=== PATIENT | female | born 1965 | race Caucasian/White ===

== ENCOUNTER → 2019-10-26 14:40 | Outpatient (BNVA) | payer MEDICAID, SELFPAY | PROVIDERS: Family Provider Nurse Practitioner Family; PCP Nurse Practitioner; Visit Provider Podiatrist Foot & Ankle Surgery | DX: M79.671 Pain in right foot (principal); M77.8 Other enthesopathies, not elsewhere classified | CPT/HCPCS: 73630 ==

== ENCOUNTER → 2020-05-22 14:37 | Outpatient (BNVA) | payer MEDICAID, SELFPAY | PROVIDERS: Family Provider Nurse Practitioner Family; PCP Nurse Practitioner; Visit Provider Podiatrist Foot & Ankle Surgery | DX: M25.571 Pain in right ankle and joints of right foot (principal); Q82.8 Other specified congenital malformations of skin | CPT/HCPCS: 73610 ==

== ENCOUNTER → 2020-11-17 13:23 | Outpatient (BNVA) | payer MEDICAID, SELFPAY | PROVIDERS: Family Provider Nurse Practitioner Family; PCP Nurse Practitioner; Visit Provider Nurse Practitioner Family | DX: N39.0 Urinary tract infection, site not specified (principal); E66.01 Morbid (severe) obesity due to excess calories; Z68.41 Body mass index [BMI] 40.0-44.9, adult; R11.2 Nausea with vomiting, unspecified | CPT/HCPCS: 36416; 81000; 82962 ==

== ENCOUNTER 2020-11-24 22:26 | Emergency (ER) | payer MEDICAID, SELFPAY ==
[2020-11-24 22:37] VITALS: BP 129/85; PULSE 86; RESP 20; TEMP 36.7; O2SAT 93; BMI 40.7
--- NOTE | 2020-11-24 22:52 | W.ED.NAVMDI ---
HPI - Nausea/Vomiting/Diarrhea General: Chief complaint: Nausea/Vomiting/Diarrhea Stated complaint: N/V, DARK BLOODY URINE Time Seen by Provider: 11/24/20 22:44 Source: patient Mode of arrival: ambulatory Limitations: no limitations History of Present Illness: HPI Narrative: 55-year-old female who states she has had nausea and vomiting over the last 2 to 3 weeks. States she has vomiting anytime she eats. She states she had some slight abdominal cramping but denies any pain currently. Patient is quite jaundiced here with scleral icterus. She states that is not normal for her. She denies any history of cancer. She has had a cholecystectomy. Associated nausea: Yes Associated symtoms: Reports nausea; Denies chest pain, dysuria or headache(s) Review of Systems Const: Denies: fever(s), chills, body aches or change in appetite Eyes: Denies: blurry vision or eye discomfort ENMT: Denies: throat pain or dental pain Card: Denies: chest pain Resp: Denies: dyspnea GI: Reports: nausea and vomiting : Denies: dysuria Musc: Denies: neck pain or back pain Skin/Breast: Denies: rash Neuro: Denies: headache(s) Psych: Denies: depression Fredo/Lymph: Denies: easy bruising All/Imm: Denies: urticaria PFSH ED PFSH: Medical History Anxiety and depression Chronic back pain COPD (chronic obstructive pulmonary disease) Diabetes mellitus with peripheral autonomic neuropathy Essential (primary) hypertension GERD (gastroesophageal reflux disease) Left anterior shoulder pain Mixed hyperlipidemia Morbid obesity with BMI of 40.0-44.9, adult Vaginal candidiasis Surgical History History of arthroscopy of both knees History of bilateral carpal tunnel release History of laparoscopic cholecystectomy History of tonsillectomy and adenoidectomy Family History Other Cancer Diabetes Denies family history of Anesthesia complication Bleeding disorder Social History Smoking and tobacco status: current every day smoker cigarettes Packs smoked per day: 1 Quit status (tobacco): considering quitting Second hand smoke exposure: Yes Alcohol intake: never Household members: children Marital status: Number of children: 2 Current occupational status: disabled Physical Exam Const: COMMON NORMALS: no acute distress, patient oriented x3 and healthy appearing HENMT: COMMON NORMALS: normocephalic and atraumatic HEAD & SCALP: normocephalic and atraumatic Eye: COMMON NORMALS: Equal, round and reactive pupils present and EOMs intact bilaterally PUPIL: Yes Equal, round and reactive pupils present OTHER: Scleral icterus Neck/C-Spine: COMMON NORMALS: full ROM and supple Chest: COMMONS NORMALS: normal inspection of the chest and normal palpation of entire chest wall Resp: COMMON NORMALS: normal respiratory effort, No retractions, No use of accessory muscles and clear to auscultation bilaterally AUSCULTATION: clear to auscultation bilaterally Cardio: COMMON NORMALS: regular rate, regular rhythm and No murmurs present (Cardio) RATE: regular rate RHYTHM: regular rhythm GI: COMMON NORMALS: Normal to inspection, nondistended, normoactive bowel sounds present, Soft to palpation, non-tender and no masses PALPATION: Yes Soft to palpation Extremity: COMMON NORMALS: normal to inspection and full ROM Neuro: COMMON NORMALS: patient oriented x3, moves all extremities and no focal motor deficits Psych: COMMON NORMALS: mental status grossly normal, Normal thought process present and cooperative THOUGHT PROCESS: Normal thought process present Skin: COMMON NORMALS: no rashes or lesions noted and no wounds NARRATIVE SKIN EXAM: Skin is jaundiced GENERAL SKIN EXAM: no rashes or lesions noted Course Vital Signs: Vital signs: Vital Signs Temperature 98.0 F 11/24/20 22:37 Pulse Rate 80 11/25/20 01:57 Respiratory Rate 17 11/25/20 01:57 Blood Pressure 124/87 11/25/20 01:57 Pulse Oximetry 90 11/25/20 01:57 MDM - Nausea/Vomiting/Diarrhea MDM Narrative: Medical decision making narrative: Patient presents here with hepatitis A causing her elevated bilirubin. CT scan here is negative. She had no vomiting here and feels much improved after IV fluids. Feel she is stable for discharge and she is to follow closely with Dr. Lei. If she has any worsening or any vomiting she is to return immediately she understands and agrees to plan. Lab Data: Labs: Lab Results 11/24/20 11/24/20 11/24/20 Range/Units 23:03 23:12 23:12 WBC 4.4 (4.0-10.0) 10^3/ uL RBC 4.58 (4.1-5.3) 10^6/u L Hgb 15.5 H (11.5-15.3) g/dL Hct 44.9 (37.0-47.0) % MCV 98.0 (81-99) fL MCH 33.8 (28.0-34.0) pg MCHC 34.5 (30.0-36.0) g/dL RDW 16.3 H (12.1-15.1) % Plt Count 193 (130-400) 10^3/c mm MPV 12.2 H (7.4-10.4) fL Neut % (Auto) 64.5 % Lymph % (Auto) 21.6 % Estill % (Auto) 11.5 % Eos % (Auto) 0.5 % Baso % (Auto) 0.5 % Neut # (Auto) 2.81 (1.8-7.7) 10^3/u L Lymph # (Auto) 0.9 (0.8-4.8) 10^3/u L Estill # (Auto) 0.5 (0.2-0.9) 10^3/u L Eos # (Auto) 0.0 (0.0-0.8) 10^3/u L Baso # (Auto) 0.0 (0.0-0.1) 10^3/u L Nucleated RBC % (a uto) 0 % Nucleated RBCs # 0.0 /100WBC PT (12.1-14.9) SECO NDS INR (0.8-1.2) Sodium 132 L (136-145) mmol/L Potassium 4.2 (3.5-5.1) mmol/L Chloride 98 (98-107) mmol/L Carbon Dioxide 24 (22-29) mmol/L Anion Gap 14.2 (5-19) BUN 9 (6-20) mg/dL Creatinine 0.4 L (0.5-0.9) mg/dL GFR Calculation 164.5 H (90-130) mL/min Glucose 193 H (65-115) mg/dL Calculated Osmolal ity 278 L (285-295) mOsm/k g Calcium 8.2 L (8.5-10.5) mg/dL Total Bilirubin 15.9 H* (0.15-1.2) mg/dL AST 663 H (0-32) U/L ALT 627 H (0-33) U/L Alkaline Phosphata se 155 H (35-105) IU/L Total Protein 7.4 (6.6-8.7) g/dL Albumin 2.4 L (3.5-5.2) g/dL Globulin 5.0 H (1.3-4.6) g/dL Lipase 90 H (13-60) U/L Urine Color Marian (Yellow) Urine Appearance Sl cloudy A (CLEAR) Urine pH 5 (5-7) Ur Specific Gravit y 1.020 (1.005-1.030) Urine Protein Trace (Negative) Urine Glucose (UA) Norm (Normal) Urine Ketones Negative (Negative) Urine Blood 2+ H (Negative) Urine Nitrate Negative (Negative) Urine Bilirubin 3+ H (Negative) Urine Urobilinogen 8 H (Negative) mg/dL Ur Leukocyte Leena ase 1+ H (Negative) Urine RBC 10-15 H (0-2) /hpf Urine WBC 5-10 H (0-5) /hpf Ur Squamous Epith Cells 25-40 H (0-5) /hpf Amorphous Sediment 1+ /hpf Urine Bacteria 2+ H (NONE) /hpf Urine Mucus 1+ /hpf Hepatitis A IgM Ab (Nonreactive) Hep Bs Antigen (Nonreactive) Hep Bs Antibody (0-8.5) Hep B Core Total A b (Nonreactive) Hepatitis C Antibo dy (Nonreactive) 11/25/20 11/25/20 Range/Units 00:30 02:04 WBC (4.0-10.0) 10^3/ uL RBC (4.1-5.3) 10^6/u L Hgb (11.5-15.3) g/dL Hct (37.0-47.0) % MCV (81-99) fL MCH (28.0-34.0) pg MCHC (30.0-36.0) g/dL RDW (12.1-15.1) % Plt Count (130-400) 10^3/c mm MPV (7.4-10.4) fL Neut % (Auto) % Lymph % (Auto) % Estill % (Auto) % Eos % (Auto) % Baso % (Auto) % Neut # (Auto) (1.8-7.7) 10^3/u L Lymph # (Auto) (0.8-4.8) 10^3/u L Estill # (Auto) (0.2-0.9) 10^3/u L Eos # (Auto) (0.0-0.8) 10^3/u L Baso # (Auto) (0.0-0.1) 10^3/u L Nucleated RBC % (a uto) % Nucleated RBCs # /100WBC PT 17.50 H (12.1-14.9) SECO NDS INR 1.39 H (0.8-1.2) Sodium (136-145) mmol/L Potassium (3.5-5.1) mmol/L Chloride (98-107) mmol/L Carbon Dioxide (22-29) mmol/L Anion Gap (5-19) BUN (6-20) mg/dL Creatinine (0.5-0.9) mg/dL GFR Calculation (90-130) mL/min Glucose (65-115) mg/dL Calculated Osmolal ity (285-295) mOsm/k g Calcium (8.5-10.5) mg/dL Total Bilirubin (0.15-1.2) mg/dL AST (0-32) U/L ALT (0-33) U/L Alkaline Phosphata se (35-105) IU/L Total Protein (6.6-8.7) g/dL Albumin (3.5-5.2) g/dL Globulin (1.3-4.6) g/dL Lipase (13-60) U/L Urine Color (Yellow) Urine Appearance (CLEAR) Urine pH (5-7) Ur Specific Gravit y (1.005-1.030) Urine Protein (Negative) Urine Glucose (UA) (Normal) Urine Ketones (Negative) Urine Blood (Negative) Urine Nitrate (Negative) Urine Bilirubin (Negative) Urine Urobilinogen (Negative) mg/dL Ur Leukocyte Leena ase (Negative) Urine RBC (0-2) /hpf Urine WBC (0-5) /hpf Ur Squamous Epith Cells (0-5) /hpf Amorphous Sediment /hpf Urine Bacteria (NONE) /hpf Urine Mucus /hpf Hepatitis A IgM Ab Reactive H (Nonreactive) Hep Bs Antigen Non-reactive (Nonreactive) Hep Bs Antibody 3.5 (0-8.5) Hep B Core Total A b Non-reactive (Nonreactive) Hepatitis C Antibo dy Non-reactive (Nonreactive) Imaging Data^: CT Abd/Pel: Radiologist's impression: [facility] [address] [address] Scan Report Signed Patient: Marian Schmitz Unit #: [id number] : 1965 Age/Sex: 55 / F ADM Date: 11/24/20 Loc: ER Room/Bed: Attending Dr: Ordering Provider/Ordering MD: Idalia Willett MD Date of Service: 11/24/20 Procedure(s): CT abdomen pelvis w con* [id number] Accession Number(s): [id number] Report Number: [id number] PROCEDURE INFORMATION: Exam: CT Abdomen And Pelvis With Contrast Exam date and time: 11/24/2020 10:56 PM Age: 55 years old Clinical indication: Nausea and vomiting; Prior surgery; Surgery type: Gb. Appy. Hysterectomy. ; Patient HX: Jaundice with n/v. Dark urine. ; Additional info: Vomiting/jaundice TECHNIQUE: Imaging protocol: Computed tomography of the abdomen and pelvis with contrast. Radiation optimization: All CT scans at this facility use at least one of these dose optimization techniques: automated exposure control; mA and/or kV adjustment per patient size (includes targeted exams where dose is matched to clinical indication); or iterative reconstruction. Contrast material: VISI 320; Contrast volume: 75 ml; Contrast route: INTRAVENOUS (IV); COMPARISON: US gall bladder [id number] 05/18/2019 9:07 AM RADIATION DOSE METRICS: Total DLP (mGy-cm): 1885 FINDINGS: Lungs: Patchy focus of ground-glass attenuation in the lateral posterior right middle lobe. Several small dense bilateral pulmonary nodules consistent with granulomas. Liver: No significant liver abnormality seen. No focal mass. Gallbladder and bile ducts: Cholecystectomy. Nondilated biliary system. Pancreas: Normal. No ductal dilation. Spleen: Normal. No splenomegaly. Adrenal glands: Normal. No mass. Kidneys and ureters: Unremarkable. Small left-sided simple renal cortical cyst incidentally found. No hydronephrosis. Stomach and bowel: No features of bowel obstruction or bowel perforation. No focal inflammatory wall thickening of bowel loops or abdominal mesentery. Appendix: No evidence of appendicitis. Intraperitoneal space: No intraperitoneal fluid collection. Vasculature: Unremarkable. No abdominal aortic aneurysm. Lymph nodes: Unremarkable. No enlarged lymph nodes. Urinary bladder: Bladder decompressed. Reproductive: Hysterectomy. Bones/joints: No aggressive bone lesions. The lumbar spinal alignment is unremarkable. No acute fractures. Soft tissues: Small fat containing midline supraumbilical ventral abdominal wall hernia. Abdominal wall is unremarkable with no significant finding. Lumbar paraspinal muscles are unremarkable. Other findings: Granulomas in the maribeth bilaterally. CT/CT abdomen pelvis w con* [id number] IMPRESSION: 1. Negative for biliary obstruction. 2. No focal liver abnormality. CXR: Radiologist's impression: [address] [address] XRay Report Signed Patient: Marian Schmitz Unit #: [id number] : 1965 Age/Sex: 55 / F ADM Date: 11/24/20 Loc: ER Room/Bed: Attending Dr: Ordering Provider/Ordering MD: Idalia Willett MD Date of Service: 11/25/20 Procedure(s): XR chest 1V portable [id number] Accession Number(s): [id number] Report Number: [id number] PROCEDURE INFORMATION: Exam: XR Chest, 1 View Exam date and time: 11/25/2020 12:07 AM Age: 55 years old Clinical indication: Shortness of breath; Prior surgery; Surgery type: Gb; Patient HX: Cp with SOB TECHNIQUE: Imaging protocol: XR of the chest Views: 1 view. COMPARISON: CT chest wo con [id number] 09/07/2019 11:14 AM FINDINGS: Lungs: Minimal left basilar atelectasis. No focal consolidation. Pleural spaces: Unremarkable. No pleural effusion. No pneumothorax. Heart/Mediastinum: The cardiac shadow is normal in size. Calcified mediastinal lymph nodes noted. Bones/joints: No acute abnormality. XR/XR chest 1V portable [id number] IMPRESSION: Minimal left basilar atelectasis. Discharge Plan Discharge Patient Disposition: Home Clinical Impression: Hepatitis A Qualifiers: Hepatic coma status: without hepatic coma Qualified Code(s): B15.9 - Hepatitis A without hepatic coma Condition: Stable Prescriptions: No Action ondansetron HCl [Zofran] 4 mg tablet 4 mg PO Q6H PRN (Reason: nausea and vomiting) Qty: 15 RF: 0 ciprofloxacin HCl [Cipro] 500 mg tablet 500 mg PO BID 7 Days Qty: 14 RF: 0 omeprazole 20 mg capsule,delayed release(DR/EC) 20 mg PO BID RF: 0 pravastatin 80 mg tablet 80 mg PO DAILY RF: 0 loratadine [Allergy Relief (loratadine)] 10 mg tablet 10 mg PO DAILY RF: 0 metoprolol succinate 100 mg tablet extended release 24 hr 100 mg PO DAILY RF: 0 amlodipine 10 mg tablet 10 mg PO DAILY RF: 0 spironolactone 25 mg tablet 25 mg PO DAILY RF: 0 aspirin [Adult Aspirin Regimen] 81 mg tablet,delayed release (DR/EC) 81 mg PO DAILY RF: 0 albuterol sulfate [ProAir HFA] 90 mcg/actuation HFA aerosol inhaler 2 puff inhalation Q6H PRNRF: 0 budesonide-formoterol [Symbicort] 160-4.5 mcg/actuation HFA aerosol inhaler 2 puff inhalation Q12H RF: 0 fluconazole 150 mg tablet 150 mg PO DAILY Qty: 1 RF: 0 Discharge Orders: Discharge ED (Routine); Ordered 11/25/20 Ordered By: Idalia Willett Referrals: Robbie Lei MD [Physician] - 1-3 days Perez Elias MD [Primary Care Provider] - Discharge Diet: Advance as tolerated Discharge Activity: Resume usual activity Patient Instructions: Hepatitis A, Viral Hepatitis A (ED) Coding Level of Care Code ED Pharmacoepidemiologist for Leon Fwd Exam Comprehensive
[2020-11-24] MEDS: diphenhydrAMINE 50 mg/mL SDV 1mL IVP (23:16)
[2020-11-24] MEDS: hydrocortisone 100 mg/2 mL SDV IVP (23:16)
[2020-11-24] MEDS: sodium chloride 0.9% 1,000 ML 999 ML IV (23:17)
[2020-11-24] MEDS: ondansetron 2 mg/ML SDV 2 mL 4 MG IVP (23:17)
[2020-11-24 23:27] LABS: Basophils % 0.5 %; Eosinophils % 0.5 %; Hematocrit 44.9 % (37.0-47.0); Hemoglobin 15.5 g/dL (11.5-15.3); Lymphocytes # 0.9 10^3/uL (0.8-4.8); Lymphocytes % 21.6 %; Mean Corpuscular HGB Conc 34.5 g/dL (30.0-36.0); Mean Corpuscular Hemoglobin 33.8 pg (28.0-34.0); Mean Platelet Volume 12.2 fL (7.4-10.4); Monocytes # 0.5 10^3/uL (0.2-0.9); Monocytes % 11.5 %; Neutrophils # 2.81 10^3/uL (1.8-7.7); Neutrophils % 64.5 %; Nucleated Red Blood Cells % 0 %; Platelet Count 193 10^3/cmm (130-400); Red Blood Count 4.58 10^6/uL (4.1-5.3); Red Cell Distribution Width 16.3 % (12.1-15.1); White Blood Count 4.4 10^3/uL (4.0-10.0)
[2020-11-24] MEDS: iodixanol 320 mg/mL 100mL Btl IV (23:28)
[2020-11-24 23:43] LABS: Alanine Aminotransferase 627 U/L (0-33); Albumin Level 2.4 g/dL (3.5-5.2); Alkaline Phosphatase 155 IU/L (35-105); Anion Gap 14.2 (5-19); Aspartate Amino Transferase 663 U/L (0-32); Blood Urea Nitrogen 9 mg/dL (6-20); Calcium 8.2 mg/dL (8.5-10.5); Carbon Dioxide 24 mmol/L (22-29); Chloride 98 mmol/L (98-107); Glomerular Filtration Rate 164.5 mL/min (90-130); Glucose 193 mg/dL (65-115); Lipase 90 U/L (13-60); Osmolality Calculated 278 mOsm/kg (285-295); Potassium 4.2 mmol/L (3.5-5.1); Sodium 132 mmol/L (136-145); Total Protein 7.4 g/dL (6.6-8.7)
[2020-11-24 23:48] LABS: Total Bilirubin 15.9 mg/dL (0.15-1.2)
[2020-11-24 23:49] LABS: Urine Color Amber (Yellow)
[2020-11-24 23:50] LABS: Add Urine Microscopic? YES; Bilirubin Urine 3+ (Negative); Blood Urine 2+ (Negative); Glucose Urine UA Norm (Normal); Ketones Urine Negative (Negative); Leukocyte Esterase Urine 1+ (Negative); Nitrate Urine Negative (Negative); Protein Urine Trace (Negative); Urobilinogen Urine 8 mg/dL (Negative); pH Urine 5 (5-7)
[2020-11-24 23:51] LABS: Squamous Epithelial Cell Urine 25-40 /hpf (0-5)
[2020-11-24 23:52] LABS: Add Urine Culture? No; Amorphous Sediment Urine 1+ /hpf; Bacteria Urine 2+ /hpf; Mucus Urine 1+ /hpf
--- NOTE | 2020-11-25 00:02 | XRR_ITS ---
PROCEDURE INFORMATION: Exam: XR Chest, 1 View Exam date and time: 11/25/2020 12:07 AM Age: 55 years old Clinical indication: Shortness of breath; Prior surgery; Surgery type: Gb; Patient HX: Cp with SOB TECHNIQUE: Imaging protocol: XR of the chest Views: 1 view. COMPARISON: CT chest con [id number] 09/07/2019 11:14 AM FINDINGS: Lungs: Minimal left basilar atelectasis. No focal consolidation. Pleural spaces: Unremarkable. No pleural effusion. No pneumothorax. Heart/Mediastinum: The cardiac shadow is normal in size. Calcified mediastinal lymph nodes noted. Bones/joints: No acute abnormality. XR/XR chest 1V portable [id number] IMPRESSION: Minimal left basilar atelectasis.
[2020-11-25 00:08] LABS: Slide Review Slide Review Perform
[2020-11-25 00:11] VITALS: BP 105/63; PULSE 68; RESP 19; O2SAT 93
[2020-11-25 01:00] VITALS: BP 122/81; PULSE 62; RESP 17; O2SAT 93
[2020-11-25 01:34] LABS: Hepatitis A Antibody IgM Reactive (Nonreactive); Hepatitis B Core AB, Total Non-Reactive (Nonreactive); Hepatitis B Surface AB 3.5 (0-8.5); Hepatitis B Surface Antigen Non-Reactive (Nonreactive); Hepatitis C Virus Antibody Non-Reactive (Nonreactive)
[2020-11-25 01:57] VITALS: BP 124/87; PULSE 80; RESP 17; O2SAT 90
[2020-11-25] MEDS: sodium chloride 0.9% 1,000 ML 999 ML IV (01:58)
[2020-11-25 02:22] LABS: INR 1.39 (0.8-1.2)
[2020-11-25 02:53] VITALS: BP 128/88; PULSE 78; RESP 17; TEMP 36.6; O2SAT 93
--- NOTE | 2020-11-27 11:40 | DCPLANNER ---
event sales manager received message to schedule follow up appointment with Dr. Lei. event sales manager called and scheduled appointment for 11/30/20 @ 2:15pm. She stated she would call patient with appointment information.
--- NOTE | 2021-01-03 10:57 | DCPLANNER ---
Patient had a follow up appointment scheduled with - patient did attend appointment.
== END 2020-11-25 02:53 | disposition home or self-care (01) ==
PROVIDERS: Emergency Provider Emergency Medicine; PCP Family Medicine Adult Medicine
DX: B15.9 Hepatitis A without hepatic coma (principal); Z79.82 Long term (current) use of aspirin; J44.9 Chronic obstructive pulmonary disease, unspecified; E11.43 Type 2 diabetes mellitus with diabetic autonomic (poly)neuropathy; I10 Essential (primary) hypertension; E78.2 Mixed hyperlipidemia; F17.210 Nicotine dependence, cigarettes, uncomplicated
CPT/HCPCS: 36415; 71045; 74177; 80053; 81001; 83690; 85025; 85610; 86705; 86706; 86709; 86803; 87340; 96361; 96374; 96375; 99284; J1200; J1720; J2405; J7030; Q9967

== ENCOUNTER → 2020-12-07 15:08 | Outpatient (BNVA) | payer MEDICAID, SELFPAY | PROVIDERS: PCP Family Medicine Adult Medicine; Visit Provider Internal Medicine | DX: B15.9 Hepatitis A without hepatic coma (principal) | CPT/HCPCS: 36415; 80053 ==

== ENCOUNTER → 2021-02-06 10:39 | Outpatient (BNVA) | payer MEDICAID, SELFPAY | PROVIDERS: PCP Family Medicine Adult Medicine; Visit Provider Family Medicine Adult Medicine | DX: E11.43 Type 2 diabetes mellitus with diabetic autonomic (poly)neuropathy (principal); I10 Essential (primary) hypertension; E78.2 Mixed hyperlipidemia; J44.9 Chronic obstructive pulmonary disease, unspecified; E66.01 Morbid (severe) obesity due to excess calories; Z68.41 Body mass index [BMI] 40.0-44.9, adult; B15.9 Hepatitis A without hepatic coma | CPT/HCPCS: 80053; 80061; 83036 ==

== ENCOUNTER → 2021-03-28 11:30 | Outpatient (BNVA) | payer MEDICAID, SELFPAY | PROVIDERS: PCP Family Medicine Adult Medicine; Visit Provider Nurse Practitioner Family | DX: R10.9 Unspecified abdominal pain (principal); R30.0 Dysuria; M25.512 Pain in left shoulder; N10 Acute pyelonephritis | CPT/HCPCS: 81000 ==

== ENCOUNTER → 2021-04-03 10:43 | Outpatient (BNVA) | payer MEDICAID, SELFPAY | PROVIDERS: PCP Family Medicine Adult Medicine; Visit Provider Family Medicine Adult Medicine | DX: N23 Unspecified renal colic (principal); N12 Tubulo-interstitial nephritis, not specified as acute or chronic; E66.01 Morbid (severe) obesity due to excess calories; Z68.41 Body mass index [BMI] 40.0-44.9, adult; B15.9 Hepatitis A without hepatic coma | CPT/HCPCS: 81003; 87086 ==

== ENCOUNTER → 2021-06-15 14:12 | Outpatient (BNVA) | payer MEDICAID, SELFPAY | PROVIDERS: PCP Family Medicine Adult Medicine; Visit Provider Orthopaedic Surgery | DX: Z01.812 Encounter for preprocedural laboratory examination (principal); Z20.822 Contact with and (suspected) exposure to COVID-19 | CPT/HCPCS: 87635 ==

== ENCOUNTER 2021-06-21 09:06 | Day surgery (SDC) | payer MEDICAID, SELFPAY ==
[2021-06-20 15:31] VITALS: BMI 39.1
[2021-06-21] VITALS (12 sets, daily range): BP systolic 148–181; BP diastolic 89–118; PULSE 72–88; RESP 17–25; TEMP 36.2–36.8; O2SAT 83–98
[2021-06-21] MEDS: acetaminophen 500 mg Tablet 1000 MG PO (09:45)
--- NOTE | 2021-06-21 09:59 | ANES.PREANE2 ---
Pre-Anesthetic Assessment Pre-Anesthetic Assessment: Height/Weight: Height 1.7 m Weight 113.398 kg Temp Pulse Resp BP Pulse Ox 97.2 F L 78 18 149/101 95 06/21/21 09:32 06/21/21 09:32 06/21/21 09:32 06/21/21 09:32 06/21/21 09:32 Preop Diagnosis: Rotator cuff tear Left shoulder Proposed Procedure: Operation Date: 06/21/21 10:50 Proposed Procedures p Shoulder Arthroscopy 38649 M17.02(Not Applicable) - Romeo Maddox MD s Rotator Cuff Repair(Not Applicable) - Romoe Maddox MD Familial anesthetic complications: None Was Beta Dee Dee taken within 24 hours: Yes Was Clonidine taken within 24 hours: N/A Last intake: Intake Last Liquid Date 06/21/21 Last Liquid Time 02:30 Last Solid Date 06/20/21 Last Solid Time 19:00 Social: Social History: Tobacco and No alcohol Exam: Pre-Anes Outpt Exam: alert, oriented x 3, clear to auscultation bilaterally and regular rate & rhythm Airway: Cervical ROM: WNL MP: 3 Dentition: False Pulmonary: Pulmonary: COPD Comments: patient states mild COPD - feels she can tolerate interscalene block CV/HEM: CV/HEM: HTN GI: GI: GERD Metabolic: Metabolic: Morbid obesity Anesthetic Plan: ASA status: 3 Anesthesia: General and Regional (specify below) Risk of > 500 ml blood loss (7ml/kg in children): No PFSH Anesthesia PFSH: Medical History Anxiety and depression Chronic back pain Chronic left shoulder pain Claustrophobia COPD (chronic obstructive pulmonary disease) Diabetes mellitus with peripheral autonomic neuropathy Essential (primary) hypertension GERD (gastroesophageal reflux disease) Left anterior shoulder pain Mixed hyperlipidemia Morbid obesity with BMI of 40.0-44.9, adult Pyelonephritis Supraspinatus tendon tear Vaginal candidiasis Surgical History History of arthroscopy of both knees History of bilateral carpal tunnel release History of laparoscopic cholecystectomy History of tonsillectomy and adenoidectomy Family History Other Cancer Diabetes Denies family history of Anesthesia complication Bleeding disorder Social History Quit status (tobacco): considering quitting Second hand smoke exposure: Yes Alcohol intake: never Household members: children Marital status: Number of children: 2 Current occupational status: disabled Data Anesthesia Cardiac Studies: No Data to Display
[2021-06-21] MEDS: midazolam 1 mg/mL INJ 2 mL 2 MG IVP (10:15)
[2021-06-21] MEDS: sodium chloride 0.9% 1,000 ML 30 ML IV (10:15)
--- NOTE | 2021-06-21 10:17 | ANES.PROC ---
Anesthesia Procedures Procedure/Date: 06/21/21 Nerve Block ^: Nerve Block 1: Main Anesthesia: general anesthesia Time Out Performed: Yes Consent: requested by attending/covering physician, from patient, risks and benefits reviewed and patient agrees to proceed Nerve block location: interscalene (L) Anesthesia monitors applied: pulse oximetry, EKG, BP cuff and oxygen Nerve block position: semi sitting Anesthetic Used: ropivicaine 0.5% and with decadron (4 mg) Amount of anesthesia used (mL): 20 Ultrasound used to: recognize landmarks and visualize and ID brachial plexus Nerve Stimulator Used?: No Interscalene/Femoral BLK: 2 stimuplex 22 g needle used for position and inplane approach and visualize local anesthetic spread Injection: neg aspiration of heme Patient Tolerated Procedure: well and no complications Complications: none
--- NOTE | 2021-06-21 11:37 | W.PM.OPSUD ---
Surgery/Procedure H&P Update DATE OF PROCEDURE: June 21, 2021 DATE H&P PERFORMED: 06/06/21 PREOP DIAGNOSIS: Rotator cuff tear Left shoulder PLANNED PROCEDURE: Operation Date: 06/21/21 10:50 Proposed Procedures p Shoulder Arthroscopy 81747 M17.02(Not Applicable) - Romeo Maddox MD s Rotator Cuff Repair(Not Applicable) - Romeo Maddox MD
--- NOTE | 2021-06-21 13:22 | P.OP_ITS ---
Operative Report Date of procedure: June 21, 2021 Pre-op Diagnosis: Rotator cuff tear Left shoulder Post-op diagnosis: same Post-op Diagnosis: Left high-grade partial-thickness tear of left rotator cuff, impingement, partial tearbiceps tendon Post-op Findings: As above Procedure Done: Arthroscopic repair left throat arthroscopic biceps tenotomy, arthroscopic left subacromial decompression Implants: [employer]hew Reneten graft Pathology: none sent Surgeon: Romeo Maddox Anesthesia: General and Nerve Block (Interscalene block) Estimated blood loss (mL): 10 Complications: None Findings: The patient had a high-grade articular sided tear of the supraspinatus tendon beginning just posterior to the anterior cable and extending approximately a centimeter posterior and a centimeter medially from the insertion beginning posterior to the anterior cable Condition: stable Disposition: PACU Procedure: The patient was taken to the operating room and the patient was taken to the operating room after an interscalene anesthesia was provided. She was given 2 g of Ancef and a general anesthesia was provided. She is prepped and draped in the lateral position with her left shoulder in 15 pounds of traction. A timeout was performed. The shoulder was entered through a posterior portal. The anterior working portal was made just below the biceps tendon with a scalpel blade. The diagnostic portion of the glenohumeral arthroscopy was performed. High-grade articular sided tearing of the central supraspinatus tendon was identified. The rotator cuff articular side was debrided of dysvascular poor quality tissue. Attention was focused on the biceps. It was retracted into the wound with approximately a 30% tear identified as the biceps entered the bicipital groove. Due to the size of her arm we chose to proceed with a tenodesis. The [employer] Werewolf probe was used to release the biceps from the superior labrum. Arthroscopy equipment was then redirected to the subacromial space and the anterior cannula directed to the subacromial space. A lateral incision was made for a working lateral portal. Initial attention was focused on the undersurface of the acromion. A slight anterior curvature was noted. A decision was made to proceed with a small acromioplasty to increase vascularityand potentiate healing for the [employer] Nephew Regeneten patch. Through the lateral portal a pproximately 4 mm of anterior inferior acromion were removed. Hemostasis was provided with the [employer] Werewolf. Lower lateral incision was made with a scalpel blade. The regenerative and patch was introduced and deployed covering the palpable area of a structural deficiency in the central supraspinatus tendon. It was fixed laterally anteriorly and posteriorly with soft tissue divine. To lateral bone divine and a posterior bone divine were applied securing the patch laterally just lateral to the rotator cuff insertion. The shoulder was irrigated with saline. Portals were closed with 3-0 Prolene. Sterile dressings were applied. The patient was placed in a sling, extubated, and taken recovery room in stable condition.
[2021-06-21] MEDS: ipratropium-albuterol 3 mL Neb INHALATION (13:44)
--- NOTE | 2021-06-21 15:23 | ANE.PACU2 ---
Inpatient post-anesthesia follow up: Vital signs: Temperature 97.2 F Pulse Rate 84 Respiratory Rate 18 Blood Pressure 148/92 Pulse Oximetry 91 Oxygen Delivery Me thod Nasal Cannula Oxygen Flow Rate 4 Fraction of Inspir ed Oxygen Hydration adequate: Yes Nausea and vomiting: No Pain level: 2 Mental status: Baseline Additional Comments: Satting low 90s room air. Patient and daughter stating they feel safe to go home. Patient not showing physical signs of SOB. States she feels like her breathing is at baseline. Someone will be with patient for next 24 hrs and she has O2 at home. Instructed if SOB worsens or O2 drops to go to ER or call ambulance.
--- NOTE | 2021-06-21 15:45 | PC.NURSE ---
1530- Pt oxygen sats 90-91% room air. Pt requesting to go home, color pink, no s/s of distress, laughing and talking with her friend. Dr. Perez, anesthesiologist, in room with pt and I. Pt. stated she had portable O2 tank at home, i gave pt her O2 tubing from today. Dr snyder and I explained s/s of distress and what to do if that happens. Pt and friend stated understanding and pt lives with her daughter and son in law, with friend 5 minutes away. pt discharged to home.
== END 2021-06-21 15:35 | disposition home or self-care (01) ==
PROVIDERS: PCP Family Medicine Adult Medicine; Visit Provider Orthopaedic Surgery
PROC: (CPT 29805; principal; 2021-06-21 10:40)
PROC: (CPT 29826; 2021-06-21 10:40)
DX: M75.102 Unspecified rotator cuff tear or rupture of left shoulder, not specified as traumatic (principal); M25.811 Other specified joint disorders, right shoulder; S46.222A Laceration of muscle, fascia and tendon of other parts of biceps, left arm, initial encounter; X58.XXXA Exposure to other specified factors, initial encounter; J44.9 Chronic obstructive pulmonary disease, unspecified; I10 Essential (primary) hypertension; K21.9 Gastro-esophageal reflux disease without esophagitis; E66.01 Morbid (severe) obesity due to excess calories; Z68.39 Body mass index [BMI] 39.0-39.9, adult; E11.42 Type 2 diabetes mellitus with diabetic polyneuropathy; E78.2 Mixed hyperlipidemia; F17.210 Nicotine dependence, cigarettes, uncomplicated
CPT/HCPCS: 29826; 29827; 29828; 64415; 76942; 96374; C1713; J0330; J0690; J1100; J2250; J2405; J2704; J2795; J3010; J7030

== ENCOUNTER → 2021-09-26 09:48 | Outpatient (BNVA) | payer MEDICAID, SELFPAY | PROVIDERS: PCP Family Medicine Adult Medicine; Visit Provider Family Medicine Adult Medicine | DX: E78.2 Mixed hyperlipidemia (principal); E11.43 Type 2 diabetes mellitus with diabetic autonomic (poly)neuropathy; I10 Essential (primary) hypertension | CPT/HCPCS: 80053; 80061; 83036; 85025 ==

== ENCOUNTER → 2021-10-17 08:49 | Outpatient (BNVA) | payer MEDICAID, SELFPAY | PROVIDERS: PCP Family Medicine Adult Medicine; Visit Provider Nurse Practitioner Family | DX: Z20.822 Contact with and (suspected) exposure to COVID-19 (principal) | CPT/HCPCS: 87635 ==

== ENCOUNTER 2022-08-01 15:35 | Outpatient (CLI) | payer MEDICAID, SELFPAY | END 2022-08-01 15:36 | disposition home or self-care (01) | LOC: SPT 15:36 | PROVIDERS: PCP Family Medicine Adult Medicine; Visit Provider Podiatrist Foot & Ankle Surgery | DX: Z46.89 Encounter for fitting and adjustment of other specified devices (principal); M92.62 Juvenile osteochondrosis of tarsus, left ankle; E11.43 Type 2 diabetes mellitus with diabetic autonomic (poly)neuropathy; E11.22 Type 2 diabetes mellitus with diabetic chronic kidney disease; N18.2 Chronic kidney disease, stage 2 (mild) | CPT/HCPCS: 97760; 99213; 99214; L4397 ==

== ENCOUNTER → 2022-08-15 13:47 | Outpatient (BNVA) | payer MEDICAID, SELFPAY | PROVIDERS: PCP Family Medicine Adult Medicine; Visit Provider Family Medicine Adult Medicine | DX: K64.9 Unspecified hemorrhoids (principal); I10 Essential (primary) hypertension; E11.43 Type 2 diabetes mellitus with diabetic autonomic (poly)neuropathy; N18.2 Chronic kidney disease, stage 2 (mild); N39.3 Stress incontinence (female) (male); J44.9 Chronic obstructive pulmonary disease, unspecified; E78.2 Mixed hyperlipidemia; J30.9 Allergic rhinitis, unspecified; K21.9 Gastro-esophageal reflux disease without esophagitis | CPT/HCPCS: 80053; 83036; 85025 ==

== ENCOUNTER → 2022-10-10 13:59 | Outpatient (BNVA) | payer MEDICAID, SELFPAY | PROVIDERS: PCP Family Medicine Adult Medicine; Visit Provider Podiatrist Foot & Ankle Surgery | DX: E11.43 Type 2 diabetes mellitus with diabetic autonomic (poly)neuropathy (principal); L60.8 Other nail disorders; N18.2 Chronic kidney disease, stage 2 (mild); L60.3 Nail dystrophy; Z79.84 Long term (current) use of oral hypoglycemic drugs | CPT/HCPCS: 11721 ==

== ENCOUNTER → 2022-12-12 12:52 | Outpatient (BNVA) | payer MEDICAID, SELFPAY | PROVIDERS: PCP Family Medicine Adult Medicine; Visit Provider Podiatrist Foot & Ankle Surgery | DX: E11.8 Type 2 diabetes mellitus with unspecified complications (principal); L60.8 Other nail disorders; N18.2 Chronic kidney disease, stage 2 (mild); E11.43 Type 2 diabetes mellitus with diabetic autonomic (poly)neuropathy; L60.3 Nail dystrophy; E11.22 Type 2 diabetes mellitus with diabetic chronic kidney disease; Z79.84 Long term (current) use of oral hypoglycemic drugs | CPT/HCPCS: 11721 ==

== ENCOUNTER → 2022-12-18 15:43 | Outpatient (BNVA) | payer MEDICAID, SELFPAY | PROVIDERS: PCP Family Medicine Adult Medicine; Visit Provider Orthopaedic Surgery | DX: M65.311 Trigger thumb, right thumb (principal) | CPT/HCPCS: 20550; 73130; 99213; J0702; J3490 ==

== ENCOUNTER → 2023-02-14 13:53 | Outpatient (BNVA) | payer MEDICAID, SELFPAY | PROVIDERS: PCP Family Medicine Adult Medicine; Visit Provider Family Medicine Adult Medicine | DX: N18.2 Chronic kidney disease, stage 2 (mild) (principal); E78.2 Mixed hyperlipidemia; E11.43 Type 2 diabetes mellitus with diabetic autonomic (poly)neuropathy; I10 Essential (primary) hypertension | CPT/HCPCS: 80053; 80061; 83036; 84443; 85025 ==

== ENCOUNTER → 2023-02-26 13:46 | Outpatient (BNVA) | payer MEDICAID, SELFPAY | PROVIDERS: PCP Family Medicine Adult Medicine; Visit Provider Orthopaedic Surgery | DX: M65.311 Trigger thumb, right thumb (principal) | CPT/HCPCS: 99213 ==

== ENCOUNTER 2023-03-20 09:56 | Day surgery (SDC) | payer MEDICAID, SELFPAY ==
[2023-03-18 09:50] VITALS: BMI 39.1
[2023-03-20] VITALS (10 sets, daily range): BP systolic 95–152; BP diastolic 71–97; PULSE 59–71; RESP 12–18; TEMP 36.1–36.2; O2SAT 91–96
--- NOTE | 2023-03-20 10:34 | ANES.PREANE2 ---
Pre-Anesthetic Assessment Height/Weight: Height 1.7 m Weight 113.398 kg Temp Pulse Resp BP Pulse Ox O2 Del Method 97 F L 65 18 152/97 95 Room Air 03/20/23 10:20 03/20/23 10:20 03/20/23 10:20 03/20/23 10:20 03/20/23 10:20 03/20/23 10:20 Preop Diagnosis: Right trigger thumb Operation Date: 03/20/23 12:05 Proposed Procedures p right trigger thumb release:[id number],M65.311(Right) - Romeo Maddox MD Familial anesthetic complications: None Was Beta Dee Dee taken within 24 hours: N/A Was Clonidine taken within 24 hours: N/A Last intake: Intake Last Liquid Date 03/19/23 Last Liquid Time 20:00 Last Solid Date 03/19/23 Last Solid Time 12:00 Social Tobacco and No alcohol Exam alert, oriented x 3, clear to auscultation bilaterally and regular rate & rhythm Airway Mallampati: Class III Dentition: false Pulmonary Chronic Obstructive Pulmonary Disease CV/HEM Hypertension Chronic Renal Insufficiency GI Gastroesophageal Reflux Disease Metabolic Diabetes Mellitus, Hyperlipidemia and Morbid Obesity Anesthetic Plan ASA status: 3 Anesthesia: MAC Risk of > 500 ml blood loss (7ml/kg in children): No Medications/Allergies Home Medications Medication Instructions Recorded Confirmed Last Taken Type biotin 10,000 mcg capsule 10,000 mcg PO DAILY 02/06/21 03/18/23 03/18/23 History night splint #1 ea 08/01/22 02/26/23 Unknown Rx Generic Glucometer, strips and #100 ea 08/15/22 02/26/23 Unknown Rx supplies adult diapers xx-large #100 ea 08/15/22 02/26/23 Unknown Rx albuterol sulfate 90 mcg/actuation 2 puff inhalation Q6H PRN 08/15/22 03/18/23 03/12/23 Rx aerosol inhaler (ProAir HFA) shortness of breath or wheezing #17 grams pantoprazole 20 mg tablet,delayed 20 mg PO DAILY acid reflux #90 tabs 08/15/22 03/18/23 03/19/23 20:00 Rx release oxybutynin chloride 15 mg 15 mg PO DAILY urine Incontinenece 12/31/22 03/18/23 03/13/23 Rx tablet,extended release 24 hr #30 tabs amlodipine 10 mg tablet 10 mg PO DAILY 30 days #30 tabs 01/28/23 03/20/23 03/19/23 20:00 Rx gemfibrozil 600 mg tablet 600 mg PO BID 90 days #180 tabs 01/28/23 03/20/23 03/19/23 20:00 Rx loratadine 10 mg tablet 10 mg PO DAILY #90 tabs 01/28/23 03/18/23 03/18/23 Rx metformin 1,000 mg tablet 1,000 mg PO BID diabetes #60 tabs 01/28/23 03/20/23 03/19/23 20:00 Rx metoprolol succinate 100 mg 100 mg PO DAILY #30 tabs 01/28/23 03/20/23 03/19/23 20:00 Rx tablet,extended release 24 hr niacin 500 mg tablet,extended 500 mg PO .qhs #30 tabs 02/21/23 03/12/23 03/18/23 Rx release 24 hr spironolactone 25 mg tablet 25 mg PO DAILY 03/12/23 03/18/23 03/19/23 20:00 History aspirin 81 mg tablet,delayed 81 mg PO DAILY 03/18/23 03/20/23 03/13/23 History release Allergies Allergy/AdvReac Type Severity Reaction Status Date / Time estrogens, conjugated Allergy Mild ALGY-Rash Verified 03/12/23 08:23 [From Premarin] ibuprofen [From Advil] Allergy Mild ADR-Gastrointestinal Verified 03/12/23 08:23 Upset Iodinated Contrast Media Allergy Mild ALGY-Hives Verified 03/12/23 08:23 naproxen [From Naprosyn] Allergy Mild ADR-Nausea Verified 03/12/23 08:23 Penicillins Allergy Mild ALGY-Rash Verified 03/12/23 08:23 prednisone Allergy Mild ADR-Muscle Verified 03/12/23 08:23 Pain PFSH Anesthesia Medical History Allergic rhinitis Anxiety and depression Chronic back pain Chronic left shoulder pain CKD (chronic kidney disease) stage 2, GFR 60-89 ml/min Claustrophobia COPD (chronic obstructive pulmonary disease) Diabetes mellitus with peripheral autonomic neuropathy Essential (primary) hypertension GERD (gastroesophageal reflux disease) Hemorrhoids Hepatitis A Mixed hyperlipidemia Morbid obesity with BMI of 40.0-44.9, adult Stress incontinence Supraspinatus tendon tear Surgical History History of arthroscopy of both knees History of bilateral carpal tunnel release History of laparoscopic cholecystectomy History of tonsillectomy and adenoidectomy S/P matrixectomy of toe Family History Other Cancer Diabetes Denies family history of Anesthesia complication Bleeding disorder Social History Smoking and tobacco status: current every day smoker cigarettes Packs smoked per day: 1 Quit status (tobacco): considering quitting Second hand smoke exposure: Yes Alcohol intake: never Substance/Drug Use: never Adopted: No Caregiver/support person: No Lives independently: Yes Household members: children Marital status: Number of children: 2 Current occupational status: disabled Current gender identity: Female Special elizabeth needs: No Data Anesthesia Cardiac Studies: No Data to Display
--- NOTE | 2023-03-20 10:40 | W.PM.OPSUD ---
Surgery/Procedure H&P Update DATE OF PROCEDURE: March 20, 2023 DATE H&P PERFORMED: 02/26/23 H&P UPDATE INFORMATION: I have reviewed H&P completed within last 30 days PREOP DIAGNOSIS: Right trigger thumb PLANNED PROCEDURE: Operation Date: 03/20/23 12:05 Proposed Procedures p right trigger thumb release:[id number],M65.311(Right) - Romeo Maddox MD
[2023-03-20 10:44] LABS: Glucose Point of Care 192 mg/dL (70-110)
[2023-03-20] MEDS: ceFAZolin 2,000 MG in sodium chloride 0.9% (plus) 50 ML 100 MG IV (10:44)
[2023-03-20] MEDS: sodium chloride 0.9% 1,000 ML 30 ML IV (10:45)
--- NOTE | 2023-03-20 11:15 | PM.OP ---
Operative Report Date of procedure: March 20, 2023 Pre-op diagnosis: Preop Diagnosis Right trigger thumb Post-op diagnosis: same Procedure done: Right trigger thumb release Pathology: none sent Surgeon: Romeo Maddox Anesthesia: MAC Estimated blood loss (mL): 2 Tourniquet time (min): 9 Condition: stable Disposition: PACU Brief History: The patient is a 57-year-old female with pain and triggering in her right thumb for the past 4 months. She had a lack of improvement with a corticosteroid injection and surgical release was chosen to improve pain and eliminate mechanical symptoms Procedure: The patient's hand was prepped in the usual fashion. A timeout was performed. A transverse incision was made over the level of a 1 patricia in the palm over a distance of approximately a centimeter and a half. Under loupe magnification blunt dissection was accomplished down to the A1 patricia. With adequate visualization a scalpel was used to divide the central 8 mm of that structure. Blunt scissors were then used to extend the release approximately 5 mm proximally and 5 mm distally. Tendons were pulled the road and inspected to assure there health. Skin edges were infiltrated with 4 cc of 0.5%n Marcaine. The skin edges were closed with 3-0 Prolene compressive dressings were applied.
--- NOTE | 2023-03-20 12:50 | ANE.PACU2 ---
Inpatient post-anesthesia follow up: Airway intact: Yes Vital signs: Temperature 97.2 F Pulse Rate 64 Respiratory Rate 18 Blood Pressure 119/78 Pulse Oximetry 94 Oxygen Delivery Me thod Nasal Cannula Oxygen Flow Rate 2 Fraction of Inspir ed Oxygen Hydration adequate: Yes Nausea and vomiting: Yes Pain level: 1 Mental status: Baseline
== END 2023-03-20 12:24 | disposition home or self-care (01) ==
PROVIDERS: PCP Family Medicine Adult Medicine; Visit Provider Orthopaedic Surgery
PROC: (CPT 26055; principal; 2023-03-20 11:55)
DX: M65.311 Trigger thumb, right thumb (principal); J44.9 Chronic obstructive pulmonary disease, unspecified; I12.9 Hypertensive chronic kidney disease with stage 1 through stage 4 chronic kidney disease, or unspecified chronic kidney disease; N18.9 Chronic kidney disease, unspecified; E11.9 Type 2 diabetes mellitus without complications; E78.2 Mixed hyperlipidemia; E66.01 Morbid (severe) obesity due to excess calories; Z68.39 Body mass index [BMI] 39.0-39.9, adult; Z79.84 Long term (current) use of oral hypoglycemic drugs; Z79.82 Long term (current) use of aspirin; K21.9 Gastro-esophageal reflux disease without esophagitis; F17.210 Nicotine dependence, cigarettes, uncomplicated
CPT/HCPCS: 26055; 36416; 82962; J0690; J2704; J3010; J3490; J7030

== ENCOUNTER → 2023-04-01 14:09 | Outpatient (BNVA) | payer MEDICAID, SELFPAY | PROVIDERS: PCP Family Medicine Adult Medicine; Visit Provider Nurse Practitioner Family | DX: Z98.890 Other specified postprocedural states (principal); E11.8 Type 2 diabetes mellitus with unspecified complications; L60.8 Other nail disorders; E11.22 Type 2 diabetes mellitus with diabetic chronic kidney disease; N18.2 Chronic kidney disease, stage 2 (mild); E11.43 Type 2 diabetes mellitus with diabetic autonomic (poly)neuropathy; L60.3 Nail dystrophy; Z79.84 Long term (current) use of oral hypoglycemic drugs | CPT/HCPCS: 99024; 99213 ==

== ENCOUNTER → 2023-05-09 12:21 | Outpatient (BNVA) | payer MEDICAID, SELFPAY | PROVIDERS: PCP Family Medicine Adult Medicine; Visit Provider Podiatrist Foot & Ankle Surgery | DX: L60.8 Other nail disorders (principal); L60.3 Nail dystrophy; E11.22 Type 2 diabetes mellitus with diabetic chronic kidney disease; N18.2 Chronic kidney disease, stage 2 (mild); E11.43 Type 2 diabetes mellitus with diabetic autonomic (poly)neuropathy; Z79.84 Long term (current) use of oral hypoglycemic drugs | CPT/HCPCS: 11750 ==

== ENCOUNTER 2025-08-31 13:43 | Outpatient (CLI) | payer OTHER, MEDICAID, SELFPAY ==
--- NOTE | 2025-08-31 14:20 | MM_ITS ---
WS: [id number] BILATERAL 3D TOMOSYNTHESIS DIGITAL SCREENING MAMMOGRAPHY WITH CAD CLINICAL INFORMATION: SCREENING HISTORY: Screening mammogram. No current complaints. COMPARISON: 2018 TECHNIQUE: Bilateral CC and MLO views. FINDINGS: Scattered fibroglandular densities bilaterally. No suspicious focal mass, asymmetry, calcifications, or architectural distortion. No evidence of malignancy. Incidental punctate calcifications MM/MM scr BI tomosynthesis [id number] IMPRESSION: DENSITY: There are scattered areas of fibroglandular density. BI-RADS: 2 - Benign. FOLLOW UP: 1 Year Follow-up Recommend return to annual screening mammography.
== END 2025-08-31 13:44 | disposition home or self-care (01) ==
LOC: MOBLMAM 13:46
PROVIDERS: PCP Family Medicine; Visit Provider Family Medicine
DX: Z12.31 Encounter for screening mammogram for malignant neoplasm of breast (principal); R92.323 Mammographic fibroglandular density, bilateral breasts; R92.1 Mammographic calcification found on diagnostic imaging of breast
CPT/HCPCS: 77063; 77067